=== PATIENT | male | born 1950 | race Caucasian/White ===

== ENCOUNTER 2017-09-03 10:42 | Emergency (ER) | payer BC, OTHER ==
[2017-09-03] MEDS ORDERED: Adacel (T-DAP) 0.5 ML VIAL ONE (11:21)
[2017-09-03] MEDS ORDERED: Lidocaine 1% (PF) 30 ML VIAL ONE (11:26)
--- NOTE | 2017-09-03 15:26 | RAD ---
LEFT HAND 3 VIEWS: HISTORY: A 67-year-old male with a history of left hand laceration and injury when a tree fell on his scalp an d injury with a saw. FINDINGS: There is some soft tissue swelling and probable associated injury overlying the 5th metacarpophalange al joint region. There are degenerative changes of the hand. No acute fracture or dislocation. IMPRESSION: Soft tissue changes at the level of the 5th metacarpophalangeal joint. Degenerative and osteoarthros is changes. No acute fracture or dislocation. POS: [facility]
== END 2017-09-03 12:33 | disposition home or self-care (01) ==
LOC: ERS 10:42
DX: S01.01XA Laceration without foreign body of scalp, initial encounter (principal); S61.412A Laceration without foreign body of left hand, initial encounter; X58.XXXA Exposure to other specified factors, initial encounter
CPT/HCPCS: 12005; 90471; 90715; J2001

== ENCOUNTER 2024-07-17 14:36 | Emergency (ER) | payer BC ==
[2024-07-17] MEDS ORDERED: Gabapentin 100 MG CAP ONE (18:32)
[2024-07-17 19:50] LABS: Bacteria/HPF None Seen HPF (None Seen); Bilirubin Negative (Negative); Blood, Urine Negative (Negative); CAUTI Indications for Culture Pelvic or flank pain; Clarity Clear (Clear); Glucose, Urine (Dipstick) Normal (Negative); Ketone, Urine 10 mg/dL (Negative); Leukocyte Negative Leu/uL (Negative); Nitrite Negative (Negative); Protein, Urine (Dipstick) 10 mg/dL (Neg-Trace); RBC/HPF 0-3 HPF (0-3); Specific Gravity, Urine 1.015 (1.002-1.036); Squamous Epithelial None Seen HPF (0-3); Urobilinogen Normal mg/dL (Less than 2); WBC/HPF 0-3 HPF (0-3); pH, Urine 5.5 (5.0-9.0)
[2024-07-17 20:09] LABS: Urine Culture Reflex No No
[2024-07-17 20:28] LABS: #Basophils 0.04 10x3/uL (0.0-0.2); %Basophils 0.4 % (0.0-1.0); %Eosinophils 0.4 % (0.0-10.0); %Lymphocytes 6.3 % (21.0-51.0); %Monocytes 5.5 % (0.0-10.0); %Neutrophils 87.1 % (42.0-75.0); Hematocrit 44.9 % (42.0-52.0); Hemoglobin 15.2 g/dL (14.0-18.0); Mean Corpuscular HGB CONC 33.9 g/dL (32.0-36.0); Mean Corpuscular Hemoglobin 29.4 pg (27.0-31.0); Mean Corpuscular Volume 86.8 fL (78.0-98.0); Mean Platelet Volume 11.1 fL (7.4-10.4); Platelet Count 185 10x3/uL (130-400); RBC Distribution Width 12.2 % (11.5-14.5); Red Blood Cell (RBC) Count 5.17 mill/uL (4.70-6.10)
[2024-07-17 21:12] LABS: ALT (SGPT) 16 U/L (Less than 45); AST (SGOT) 26 U/L (11-34); Alkaline Phosphatase 63 U/L (40-110); Anion Gap 15 mmol/L (10-20); BUN (Urea Nitrogen) 11 mg/dL (8.4-25.7); Bilirubin, Total 1.3 mg/dL (0.3-1.2); Calc. Creatinine Clearance 0 mL/min (70-130); Calcium 9.1 mg/dL (7.8-10.44); Carbon Dioxide 21 mmol/L (23-31); Chloride 107 mmol/L (98-107); Estimated GFR 76; Globulin 2.7 g/dL (2.4-3.5); Glucose 104 mg/dL (83-110); Potassium 4.3 mmol/L (3.5-5.1); Protein, Total 6.7 g/dL (5.8-8.1); Sodium 139 mmol/L (136-145)
[2024-07-17 21:52] LABS: Troponin I 0.014 ng/mL (< 0.028)
== END 2024-07-17 22:27 | disposition home or self-care (01) ==
LOC: ERS 14:36
DX: M25.512 Pain in left shoulder (principal); I10 Essential (primary) hypertension; Z79.899 Other long term (current) drug therapy
CPT/HCPCS: 36415; 70450; 71045; 72125; 80053; 81001; 84484; 85025; 93005

== ENCOUNTER 2024-08-10 07:56 | Outpatient (CLI) | payer OTHER | END 2024-08-10 07:57 | disposition home or self-care (01) | LOC: BICMRI 07:56 | PROVIDERS: ATTEND Nurse Practitioner Family | DX: R20.2 Paresthesia of skin (principal); R90.89 Other abnormal findings on diagnostic imaging of central nervous system; J34.89 Other specified disorders of nose and nasal sinuses | CPT/HCPCS: 70551 ==